=== PATIENT | male | born 1980 | race Caucasian/White ===

== ENCOUNTER 2019-08-28 19:54 | Emergency (ER) | payer OTHER ==
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
[2019-08-28 20:13] VITALS: BP 158/110
[2019-08-28] MEDS ORDERED: HYDROcodone/ACETAMINOPHEN 5-325 MG TAB PO ONE (20:41)
[2019-08-28] MEDS ORDERED: HYDROcodone/ACETAMINOPHEN 5-325 MG TAB ONE (20:43)
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
== END 2019-08-28 23:05 | disposition home or self-care (01) ==
LOC: ED 19:54
DX: R07.81 Pleurodynia (principal); M54.5 Low back pain; Z79.899 Other long term (current) drug therapy; V49.69XA Unspecified car occupant injured in collision with other motor vehicles in traffic accident, initial encounter; Y93.89 Activity, other specified; Y92.410 Unspecified street and highway as the place of occurrence of the external cause; Y99.8 Other external cause status
CPT/HCPCS: 72100